=== PATIENT | female | born 2000 | race Two or more races ===

== ENCOUNTER 2019-08-17 11:23 | Emergency (ER) | payer OTHER ==
[~2019-08-17] VITALS: Ht 177.8 cm; Wt 54.4 kg
[2019-08-17] MEDS ORDERED: ONDANSETRON HCL/PF 4 MG/2 ML VIAL ONE (11:38)
--- NOTE | 2019-08-17 11:49 | NUR ---
bib ra c/o chest pain x 2 days, nitro x 1 given in field with relief. REPORTS ASSOCIATED HEADACHE AND NAUSEA. DENIES SOB, VOMITING. NO ACUTE DISTRESS NOTED. ON MONITOR, EKG COMPLETED, MADE COMFORTABLE. SEEN BY MD. WILL CONT TO MONITOR.
--- NOTE | 2019-08-17 11:50 | NUR ---
IV LINE ESTABLISHED. MED GIVEN. IVF INFUSING. PT EMERSON WELL
[2019-08-17] MEDS: IV NS 0.9% 1,000 ML BAG IV ONE (11:51)
[2019-08-17 11:52] LABS: BASOPHILS % (AUTO) 0.8 % (0.0-2.0); EOSINOPHILS % (AUTO) 4.2 % (0.0-6.0); HEMATOCRIT 39 % (33-45); HEMOGLOBIN 13.4 g/dL (11.5-14.8); LYMPHOCYTES # (AUTO) 1.3 /CMM (0.8-4.8); LYMPHOCYTES % (AUTO) 33.2 % (20.0-44.0); MEAN CORPUSCULAR HGB CONC 35 g/dl (31.0-36.0); MEAN CORPUSCULAR VOLUME 92 fL (82-100); MONOCYTES # (AUTO) 0.4 /CMM (0.1-1.30); MONOCYTES % (AUTO) 10.1 % (2.0-12.0); NEUTROPHILS % (AUTO) 51.7 % (43.0-81.0); PLATELET COUNT (AUTO) 177 /CMM (150-450); WHITE BLOOD COUNT (AUTO) 3.9 K/uL (4.3-11.0)
[2019-08-17] MEDS: ONDANSETRON HCL/PF 4 MG/2 ML VIAL IVP ONE (11:52)
[2019-08-17 11:58] LABS: CALCIUM, SERUM 8.7 mg/dL (8.5-10.1); CARBON DIOXIDE 27 mmol/L (21-32); CHLORIDE 107 mmol/L (98-107); CREATININE 0.8 mg/dL (0.6-1.3); GLUCOSE 83 mg/dL (74-106); POTASSIUM 4.2 mmol/L (3.5-5.1); SODIUM SERUM 140 mmol/L (136-145); UREA NITROGEN, BLOOD 13 mg/dL (7-18)
[2019-08-17] MEDS ORDERED: ALBU8.5H8 IH (12:07)
[2019-08-17] MEDS ORDERED: CLON0.1T PO (12:07)
[2019-08-17] MEDS ORDERED: MONT10TA22 PO (12:07)
[2019-08-17] MEDS ORDERED: FEXO180T94 PO (12:07)
[2019-08-17] MEDS ORDERED: HYDR-500 PO (12:07)
[2019-08-17] MEDS ORDERED: NALT50TA PO (12:07)
[2019-08-17] MEDS ORDERED: IBUP-1955 PO (12:07)
[2019-08-17] MEDS ORDERED: MAGN400O6 PO (12:07)
[2019-08-17] MEDS ORDERED: ACET-868 PO (12:07)
[2019-08-17] MEDS ORDERED: ONDA8TAB6 PO (12:07)
[2019-08-17] MEDS ORDERED: BISM262O28 PO (12:07)
[2019-08-17 12:16] LABS: ALANINE AMINOTRANSFERASE 14 U/L (12-78); ALBUMIN 3.9 g/dL (3.4-5.0); ALKALINE PHOSPHATASE 64 U/L (46-116); ASPARTATE AMINOTRANSFERASE 16 U/L (15-37); BILIRUBIN,DIRECT 0.2 mg/dL (0.0-0.2); BILIRUBIN,TOTAL 0.9 mg/dL (0.2-1.0); LIPASE 117 U/L (73-393); TOTAL PROTEIN, SERUM 7.1 g/dL (6.4-8.2)
--- NOTE | 2019-08-17 13:09 | NUR ---
CALLED [phone] INFORMED OF DISCHAGE... ISMA RODRIGUEZ WILL PICK HER UP. ETA 20 MINS
--- NOTE | 2019-08-17 13:25 | NUR ---
IV removed. Catheter intact and site benign. Pressure and 4x4 applied to site. No bleeding noted.Patient discharged to home in stable condition. Written and verbal after care instructions given. Patient verbalizes understanding of instruction.
[2019-08-17 13:54] VITALS: BP 106/67
== END 2019-08-17 13:30 | disposition home or self-care (01) ==
LOC: ER 11:25
DX: R07.89 Other chest pain (principal); R51 Headache; R11.2 Nausea with vomiting, unspecified; Z88.0 Allergy status to penicillin; Z60.2 Problems related to living alone; Z91.018 Allergy to other foods; Z79.899 Other long term (current) drug therapy
CPT/HCPCS: 36415; 71045; 80048; 80076; 83690; 84484; 84702; 85025; 93005; 96361; 96374; 99285; J2405; J7030